=== PATIENT | female | born 1970 | race Caucasian/White ===

== ENCOUNTER 2020-05-05 12:06 | Emergency (ER) | payer BC ==
[~2020-05-05] VITALS: Ht 172.7 cm; Wt 54.4 kg
--- NOTE | 2020-05-05 12:09 | NUR ---
pt presents to ED for EKG and xray. Seen by Dr. Dudley on arrival.
--- NOTE | 2020-05-05 12:29 | NUR ---
Patient discharged to home in stable condition. Written and verbal after care instructions given. Patient verbalizes understanding of instructions. Stressed follow up or return to ER for worsening s/s.PT WALKS IN STEADY GAIT
== END 2020-05-05 12:30 | disposition home or self-care (01) ==
LOC: ER 12:06
DX: Z01.818 Encounter for other preprocedural examination (principal)
CPT/HCPCS: 71045; 93005; A4663